=== PATIENT | male | born 1955 | race Caucasian/White ===

== ENCOUNTER → 2016-12-04 | Outpatient (CLI) | payer OTHER | LOC: FIMAGING 11:57 | PROVIDERS: ATTEND Family Medicine | DX: M99.71 Connective tissue and disc stenosis of intervertebral foramina of cervical region (principal) ==

== ENCOUNTER → 2017-02-24 | Outpatient (CLI) | payer OTHER | LOC: BMCIMAGING 18:35 | PROVIDERS: ATTEND Family Medicine | DX: S82.842A Displaced bimalleolar fracture of left lower leg, initial encounter for closed fracture (principal); W20.8XXA Other cause of strike by thrown, projected or falling object, initial encounter ==